=== PATIENT | male | born 1970 | race Caucasian/White ===

== ENCOUNTER 2017-04-23 10:05 | Emergency (ER) | payer BC ==
[~2017-04-23] VITALS: Ht 177.8 cm; Wt 74.8 kg
--- NOTE | 2017-04-23 10:21 | NUR ---
pt is in room #2b. dr smith evaluated the pt.
[2017-04-23] MEDS ORDERED: TDAP DIPH,PERTUSS,TET VAC/PF 0.5 ML DISP.SYRIN IM ONE ×2 (10:30→10:46)
--- NOTE | 2017-04-23 10:45 | NUR ---
pt was d/c to home. d/c instructions given to the pt.
[2017-04-23 10:46] VITALS: BP 128/77
[2017-04-23] MEDS ORDERED: BACITRACIN OPHT OINT 3.5 GM TUBE ONE (10:48)
[2017-04-23] MEDS ORDERED: BACITRACIN/POLYMYXIN B OINT 15 GM TUBE TOP SCH (21:00)
== END 2017-04-23 10:49 | disposition home or self-care (01) ==
LOC: ER 10:06
DX: S61.012A Laceration without foreign body of left thumb without damage to nail, initial encounter (principal); F41.9 Anxiety disorder, unspecified; F32.9 Major depressive disorder, single episode, unspecified; Z88.2 Allergy status to sulfonamides; X58.XXXA Exposure to other specified factors, initial encounter; Y93.89 Activity, other specified; Y99.8 Other external cause status; Y92.89 Other specified places as the place of occurrence of the external cause
CPT/HCPCS: 90471; 90715; 99283; A4663; J3590